=== PATIENT | male | born 1945 | race Caucasian/White ===

== ENCOUNTER 2025-02-26 22:16 | Emergency (ER) | payer OTHER ==
[~2025-02-26 22:16] MED LIST: Iopamidol-370 76% 500 ML MDV (1 ML CHARGE) ONE
[2025-02-26 22:44] LABS: #Basophils 0.06 10x3/uL (0.0-0.2); #Eosinophils 1.82 10x3/uL (0.0-0.7); #Monocytes 0.68 10x3/uL (0.11-0.59); #Neutrophils 4.50 10x3/uL (1.40-6.50); %Basophils 0.6 % (0.0-1.0); %Eosinophils 18.2 % (0.0-10.0); %Lymphocytes 28.8 % (21.0-51.0); %Monocytes 6.8 % (0.0-10.0); %Neutrophils 45.1 % (42.0-75.0); Hematocrit 43.7 % (42.0-52.0); Hemoglobin 14.7 g/dL (14.0-18.0); Mean Corpuscular Hemoglobin 31.3 pg (27.0-31.0); Mean Corpuscular Volume 93.0 fL (78.0-98.0); Platelet Count 165 10x3/uL (130-400); Red Blood Cell (RBC) Count 4.70 mill/uL (4.70-6.10); White Blood Cell (WBC) Count 9.99 10x3/uL (4.8-10.8)
[2025-02-26] MEDS ORDERED: Acetaminophen 500 MG TAB ONE (22:49)
[2025-02-26 22:59] LABS: ALT (SGPT) 16 U/L (Less than 45); AST (SGOT) 13 U/L (11-34); Albumin 3.9 g/dL (3.1-4.5); Alkaline Phosphatase 66 U/L (40-110); Anion Gap 14 mmol/L (10-20); BUN (Urea Nitrogen) 30 mg/dL (8.4-25.7); Bilirubin, Total 0.4 mg/dL (0.3-1.2); Calc. Creatinine Clearance 0 mL/min (70-130); Calcium 9.0 mg/dL (7.8-10.44); Carbon Dioxide 23 mmol/L (23-31); Chloride 106 mmol/L (98-107); Globulin 3.1 g/dL (2.4-3.5); Glucose 213 mg/dL (83-110); Potassium 4.5 mmol/L (3.5-5.1); Sodium 138 mmol/L (136-145)
[2025-02-27] MEDS ORDERED: Sulfameth/Trimethoprim DS 800-160mg TAB ONE (01:41)
== END 2025-02-27 01:52 ==
LOC: ERS 22:16 → EEVIPCON 22:16 → ERS 02-27 01:52
DX: L03.314 Cellulitis of groin (principal); E11.9 Type 2 diabetes mellitus without complications; I25.10 Atherosclerotic heart disease of native coronary artery without angina pectoris; I10 Essential (primary) hypertension
CPT/HCPCS: 71045; 74177; 80053; 83880; 84484; 85025; 87428; Q9967